=== PATIENT | female | born 1990 | race Hispanic/Latino ===

== ENCOUNTER 2017-08-03 15:34 | Emergency (ER) | payer MEDICAID ==
[2017-08-03 16:03] VITALS: BMI 25.8
[2017-08-03 16:08] VITALS: PULSE 82; RESP 16; TEMP 98.1; O2SAT 99
[2017-08-03] MEDS ORDERED: TDAP Vaccine 0.5 mL Syr IM ONE (16:30)
--- NOTE | 2017-08-03 16:36 | ED PDOC ---
Arrival/HPI - General Chief Complaint: Eye Problem Time Seen by Provider: 08/03/17 16:07 Historian: Patient - History of Present Illness Narrative History of Present Illness (Text): 08/03/17 16:31 27yr old female presents today with right eye irritation. pt states that she poked herself in the right eye with a straw last night. pt c/o burning sensation to right eye. c/o watery eyes. pt c/o photophobia. unsure of last tetanus shot. no fever/chills. no medications taken at home. no other complaints. Past Medical History - Provider Review Nursing Documentation Reviewed: Yes - Travel History Have you recently traveled outside [place] w/in the past 3 mons?: No - Infectious Disease Hx of Infectious Diseases: None - Tetanus Immunization Tetanus Immunization: Unknown - Cardiac Hx Cardiac Disorders: No - Pulmonary Hx Respiratory Disorders: No - Neurological Hx Neurological Disorder: No - HEENT Hx HEENT Disorder: No - Renal Hx Renal Disorder: No - Endocrine/Metabolic Hx Endocrine Disorders: No - Hematological/Oncological Hx Blood Disorders: No - Integumentary Hx Dermatological Disorder: No - Musculoskeletal/Rheumatological Hx Musculoskeletal Disorders: No - Gastrointestinal Hx Gastrointestinal Disorders: No - Genitourinary/Gynecological Hx Genitourinary Disorders: Yes Other/Comment: ovarian cysts - Psychiatric Hx Psychophysiologic Disorder: No Hx Substance Use: Yes (marijuana) - Anesthesia Hx Anesthesia: No - Suicidal Assessment Feels Threatened In Home Enviroment: No Family/Social History - Physician Review Nursing Documentation Reviewed: Yes Family/Social History: Unknown Family HX Smoking Status: Never Smoked Hx Alcohol Use: No Hx Substance Use: Yes (marijuana) Allergies/Home Meds Allergies/Adverse Reactions: Allergies cat dander Allergy (Mild, Verified 06/04/17 19:52) SWELLING Review of Systems - Review of Systems Constitutional: absent: Fatigue, Fevers Eyes: Photophobia, Eye Pain (right eye pain) ENT: absent: Sore Throat, Sinus Congestion Respiratory: absent: SOB, Cough Cardiovascular: absent: Chest Pain, Palpitations Gastrointestinal: absent: Abdominal Pain, Nausea, Vomiting Neurological: absent: Headache, Dizziness Physical Exam Vital Signs Reviewed: Yes Vital Signs Temp Pulse Resp BP Pulse Ox 08/03/17 16:03 98.1 F 82 16 132/88 99 Temperature: Afebrile Blood Pressure: Normal Pulse: Regular Respiratory Rate: Normal Appearance: Positive for: Well-Appearing, Non-Toxic, Comfortable Pain Distress: None Mental Status: Positive for: Alert and Oriented X 3 - Systems Exam Head: Present: Atraumatic Pupils: Present: PERRL Extroacular Muscles: Present: EOMI Conjunctiva: Present: Injected (right eye conjunctival injection; there is a 2mm by 1mm corneal abrasion with + dye uptake noted to the inferior aspect of right cornea; EOMI. ) Mouth: Present: Moist Mucous Membranes Neck: Present: Normal Range of Motion Respiratory/Chest: Present: Clear to Auscultation, Good Air Exchange. No: Respiratory Distress, Accessory Muscle Use Cardiovascular: Present: Regular Rate and Rhythm, Normal S1, S2. No: Murmurs Neurological: Present: GCS=15, Speech Normal Skin: Present: Warm, Dry, Normal Color Psychiatric: Present: Alert, Oriented x 3 Medical Decision Making ED Course and Treatment: 08/03/17 17:04 Patient is nontoxic well appearing in no distress Visual acuity right eye; 20/70 left; 20/40 both; 20/30 right eye; + inferior lateral Conjunctival injection noted, PERRLA, extraocular muscles intact tetanus updated. pt was advised to f/u with eye doctor within the next 2 days. pt was advised immediate return if symptoms worsen,persist or if new symptoms develop. Patient verbalizes understanding of discharge instructions and need for immediate followup. all aspects of this case were discussed the attending of record. Impression: Corneal abrasion Tobrex: 2 drops in the affected eye 4 times daily Followup with the eye doctor within the next 2 days Return immediately if symptoms worsen persist or if new symptoms develop; blurry vision, worsening eye pain, worsening redness or any other concerning symptoms develop. Follow up with the primary care physician within the next 2 days - Medication Orders Current Medication Orders: Discontinued Medications Tetanus/Reduced Diphtheria/Acell Pertussis (Boostrix Vaccine Inj) 0.5 ml IM .ONCE ONE Stop: 08/03/17 16:31 Last Admin: 08/03/17 16:43 Dose: 0.5 ml MAR Immunization Data Document 08/03/17 16:43 MS (Rec: 08/03/17 16:43 MS [id number]) Immunization Data Vaccine Information Sheet Given Yes Immunization Registry Document 08/03/17 16:43 MS (Rec: 08/03/17 16:43 MS [id number]) Immunization Registry Consent Date 04/29/17 Disposition/Present on Arrival - Present on Arrival Any Indicators Present on Arrival: No History of DVT/PE: No History of Uncontrolled Diabetes: No Urinary Catheter: No History of Decub. Ulcer: No History Surgical Site Infection Following: None - Disposition Have Diagnosis and Disposition been Completed?: Yes Diagnosis: Corneal abrasion Disposition: HOME/ ROUTINE Disposition Time: 17:10 Patient Plan: Discharge Patient Problems: Current Active Problems Problem Status Onset Corneal abrasion Acute Condition: GOOD Discharge Instructions (ExitCare): Corneal Abrasion Additional Instructions: Tobrex: 2 drops in the affected eye 4 times daily Followup with the eye doctor within the next 2 days Return immediately if symptoms worsen persist or if new symptoms develop; blurry vision, worsening eye pain, worsening redness or any other concerning symptoms develop. Follow up with the primary care physician within the next 2 days Prescriptions: Tobramycin 0.3% [Tobrex 0.3% Ophth Oint] 1 appl OD TID #1 tube Referrals: Frank Flood MD [Primary Care Provider] - Follow up with primary Dallas Reynoso [Staff Provider] - Follow up with primary Forms: [employer] (T[place]anian), WORK NOTE
[2017-08-03 20:27] VITALS: BP 110/72
== END 2017-08-03 18:20 | disposition home or self-care (01) ==
LOC: ED 15:34
DX: S05.01XA Injury of conjunctiva and corneal abrasion without foreign body, right eye, initial encounter (principal); X58.XXXA Exposure to other specified factors, initial encounter; Z23 Encounter for immunization

== ENCOUNTER 2017-09-12 10:49 | Emergency (ER) | payer MEDICAID ==
[2017-09-12 10:49] VITALS: BMI 24.5
[2017-09-12 10:58] VITALS: TEMP 98.3
[2017-09-12 11:22] VITALS: RESP 18; O2SAT 99
--- NOTE | 2017-09-12 11:51 | ED PDOC ---
Arrival/HPI - General Chief Complaint: Back Pain Time Seen by Provider: 09/12/17 11:00 Historian: Patient - History of Present Illness Narrative History of Present Illness (Text): 09/12/17 11:14 A 27 year old female, whose past medical history includes P: 0, presents to the emergency department complaining of back pain radiating to legs since yesterday. Patient reports having experienced similar symptom in the past. 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 Patient denies any trauma, fever, chills, urinary symptoms, anesthesia, or any other complaints. No PMD Past Medical History - Provider Review Nursing Documentation Reviewed: Yes - Infectious Disease Hx of Infectious Diseases: None - Tetanus Immunization Tetanus Immunization: Unknown - Cardiac Hx Cardiac Disorders: No - Pulmonary Hx Respiratory Disorders: No - Neurological Hx Neurological Disorder: No - HEENT Hx HEENT Disorder: No - Renal Hx Renal Disorder: No - Endocrine/Metabolic Hx Endocrine Disorders: No - Hematological/Oncological Hx Blood Disorders: No - Integumentary Hx Dermatological Disorder: No - Musculoskeletal/Rheumatological Hx Musculoskeletal Disorders: No - Gastrointestinal Hx Gastrointestinal Disorders: No - Genitourinary/Gynecological Hx Genitourinary Disorders: Yes Other/Comment: ovarian cysts - Psychiatric Hx Psychophysiologic Disorder: No Hx Substance Use: Yes (marijuana) - Anesthesia Hx Anesthesia: No - Suicidal Assessment Feels Threatened In Home Enviroment: No Family/Social History - Physician Review Nursing Documentation Reviewed: Yes Family/Social History: No Known Family HX Smoking Status: Former Smoker Hx Alcohol Use: No Hx Substance Use: Yes (marijuana) Allergies/Home Meds Allergies/Adverse Reactions: Allergies cat dander Allergy (Mild, Verified 09/12/17 10:51) SWELLING Review of Systems - Physician Review All systems were reviewed & negative as marked: Yes - Review of Systems Constitutional: absent: Fevers, Night Sweats Genitourinary Female: absent: Dysuria, Frequency, Hematuria, Urine Output Changes, Vaginal Bleeding, Vaginal Discharge Musculoskeletal: Back Pain (radiating to legs) Neurological: absent: Other (no anesthesia) Physical Exam Vital Signs Reviewed: Yes Vital Signs Temp Pulse Resp BP Pulse Ox 09/12/17 13:46 98.3 F 79 18 102/53 L 99 09/12/17 13:38 79 18 102/53 L 99 06/05/18 11:22 98.3 F 89 18 106/69 99 09/12/17 10:52 98.3 F 89 17 106/69 98 Temperature: Afebrile Blood Pressure: Normal Pulse: Regular Respiratory Rate: Normal Appearance: Positive for: Well-Appearing Pain Distress: None Mental Status: Positive for: Alert and Oriented X 3 - Systems Exam Head: Present: Atraumatic, Normocephalic Neck: Present: Normal Range of Motion Respiratory/Chest: Present: Clear to Auscultation, Good Air Exchange. No: Respiratory Distress, Accessory Muscle Use Cardiovascular: Present: Regular Rate and Rhythm, Normal S1, S2. No: Murmurs Abdomen: No: Tenderness, Distention, Peritoneal Signs Back: Present: Other (lumbar tenderness) Upper Extremity: Present: Normal Inspection. No: Cyanosis, Edema Lower Extremity: Present: Normal Inspection. No: Edema Neurological: Present: GCS=15, CN II-XII Intact, Speech Normal Skin: Present: Warm, Dry, Normal Color. No: Rashes Psychiatric: Present: Alert, Oriented x 3, Normal Insight, Normal Concentration Medical Decision Making ED Course and Treatment: 09/12/17 11:18 Impression: 27 year old female with back pain radiating to legs. Physical exam shows lumbar tenderness. Plan: -- Transvaginal Ultrasound -- Labs -- Urinalysis -- Tylenol -- Reassess and disposition Progress Notes: 09/12/2017 13:16 Transvaginal Ultrasound IMPRESSION: Single live intrauterine fetus with mean gestational age of 19 weeks and 4 days. The estimated date of delivery by ultrasound is 02/02/2018. Please note this is a limited OB ultrasound performed in the emergency room. Dedicated follow-up anatomic survery is recommended. Dictator: Cristina Méndez MD 09/15/17 23:11 suspect msk pain. s/p tylenol pain resolved. pt ambulatory steady gait. iup confirmed. pt asking for dc to attend sous chef appt. 09/15/17 23:12 no saddle anesthesia, no urinary complaints neuro intact. - Lab Interpretations Microbiology Results: Microbiology Results 09/12/17 21:32 Urine,Clean Catch Urine Culture - Final No Growth (<1,000 CFU/ML) Lab Results: 09/12/17 11:46 09/12/17 11:46 Lab Results 09/12/17 11:49: Urine Color Yellow, Urine Appearance Clear, Urine pH 6.0, Ur Specific [place] 1.025, Urine Protein Negative, Urine Glucose (UA) Negative, Urine Ketones Negative, Urine Blood Negative, Urine Nitrate Negative, Urine Bilirubin Negative, Urine Urobilinogen 0.2, Ur Leukocyte Esterase Trace H, Urine RBC 0 - 2, Urine WBC 5 - 10, Ur Epithelial Cells 6 - 8, Urine Bacteria Many, Urine Other Uyeast, Urine HCG, Qual Positive 09/12/17 11:46: Blood Type O NEGATIVE, Antibody Screen Negative, BBK History Checked No verified bt 09/12/17 11:46: Beta HCG, Quant 58882.00 H 09/12/17 11:46: Sodium 137, Potassium 3.8, Chloride 104, Carbon Dioxide 23, Anion Gap 14, BUN 6 L, Creatinine 0.6 L, Est GFR ( Amer) > 60, Est GFR ( Non-Af Amer) > 60, Random Glucose 87, Calcium 9.1, Total Bilirubin 0.1 L, AST 27 , ALT 41, Alkaline Phosphatase 78, Total Protein 6.7, Albumin 3.8, Globulin 2.9 , Albumin/Globulin Ratio 1.3 09/12/17 11:46: PT 11.4, INR 0.99, APTT 25.5 09/12/17 11:46: WBC 12.1 H D, RBC 4.08, Hgb 12.7, Hct 36.6, MCV 89.7, MCH 31.1, MCHC 34.7, RDW 13.4, Plt Count 234, MPV 9.2, Gran % 73.9 H, Lymph % (Auto) 17.8 L, [place] % (Auto) 5.4, Eos % (Auto) 2.7, Baso % (Auto) 0.2, Gran # 8.94 H, Lymph # (Auto) 2.2, [place] # (Auto) 0.7 H, Eos # (Auto) 0.3, Baso # (Auto) 0.03 I have reviewed the lab results: Yes - RAD Interpretation Radiology Orders: 09/12/17 11:17 AGE [US] Stat - Medication Orders Current Medication Orders: Discontinued Medications Acetaminophen (Tylenol 325mg Tab) 975 mg PO STAT STA Stop: 09/12/17 11:19 Last Admin: 09/12/17 11:39 Dose: 975 mg MAR Pain/Vitals Document 09/12/17 11:39 SF (Rec: 09/12/17 11:39 [place] [id number] Pain Reassessment Is This A Pain ReAssessment? Yes Sleep Is patient sleeping during reassessment? No Presence of Pain Presence of Pain Yes - Scribe Statement The provider has reviewed the documentation as recorded by the Meet Pierson Provider Scribe Attestation: All medical record entries made by the Scribe were at my direction and personally dictated by me. I have reviewed the chart and agree that the record accurately reflects my personal performance of the history, physical exam, medical decision making, and the department course for this patient. I have also personally directed, reviewed, and agree with the discharge instructions and disposition. Disposition/Present on Arrival - Present on Arrival Any Indicators Present on Arrival: No History of DVT/PE: No History of Uncontrolled Diabetes: No Urinary Catheter: No History of Decub. Ulcer: No History Surgical Site Infection Following: None - Disposition Have Diagnosis and Disposition been Completed?: Yes Diagnosis: Back pain Disposition: HOME/ ROUTINE Disposition Time: 01:00 Condition: STABLE Discharge Instructions (ExitCare): Urinary Tract Infections in Adults, Low Back Pain (DC), Asymptomatic Bacteriuria Additional Instructions: please follow up with your doctor/clinic. return to er with worsening symptoms or concerns. Prescriptions: Cefpodoxime [Vantin] 100 mg PO BID #14 tab Referrals: [facility] [Outside] - Follow up with primary [facility] [place] - [facility] - Follow up with primary Forms: [employer] (Micronesian)
[2017-09-12 12:00] LABS: BASO # 0.03 K/mm3 (0.0-2.0); BASO % 0.2 % (0.0-3.0); EOS # 0.3 (0.0-0.7); EOS % 2.7 % (1.5-5.0); GRAN # 8.94 (1.4-6.5); GRAN % 73.9 % (50.0-68.0); HEMOGLOBIN 12.7 g/dL (12.0-16.0); LYMPH # 2.2 (1.2-3.4); LYMPH % 17.8 % (22.0-35.0); MEAN CELL VOLUME 89.7 fl (80.0-105.0); MEAN CORPUSCULAR HEMOGLOBIN 31.1 pg (25.0-35.0); MEAN CORPUSCULAR HGB CONC 34.7 g/dl (31.0-37.0); MEAN PLATELET VOLUME 9.2 fl (7.0-11.0); MONO # 0.7 (0.1-0.6); MONO % 5.4 % (1.0-6.0); RBC 4.08 10^6/uL (3.5-6.1); RED CELL DISTRIBUTION WIDTH 13.4 % (11.5-14.5); WHITE BLOOD COUNT 12.1 10^3/ul (4.5-11.0)
[2017-09-12 12:00] LABS: HCG,QUALITATIVE URINE POSITIVE (NEGATIVE); URINE BILIRUBIN NEGATIVE (NEGATIVE); URINE BLOOD NEGATIVE (NEGATIVE); URINE GLUCOSE (UA) NEGATIVE (NEGATIVE); URINE LEUKOCYTE ESTERASE TRACE Leu/uL (NEGATIVE); URINE PROTEIN NEGATIVE mg/dL (<30 mg/dL); URINE UROBILINOGEN 0.2 E.U./dL (<1 E.U./dL)
[2017-09-12 12:02] LABS: URINE APPEARANCE CLEAR (CLEAR); URINE COLOR YELLOW (YELLOW)
[2017-09-12 12:02] LABS: ALB/GLOB RATIO 1.3 (1.1-1.8); ALBUMIN 3.8 g/dL (3.0-4.8); ALT/SGPT 41 U/L (7-56); AST/SGOT 27 U/L (14-36); BLOOD UREA NITROGEN 6 mg/dL (7-21); CALCIUM 9.1 mg/dL (8.4-10.5); GFR AFRICAN-AMERICAN > 60; GFR NON-AFRICAN AMERICAN > 60
[2017-09-12 12:09] LABS: URINE BACTERIA MANY (NEG); URINE RBC 0 - 2 /hpf (0-2)
[2017-09-12 12:20] LABS: INR 0.99 (0.93-1.08); PARTIAL THROMBOPLASTIN TIME 25.5 Seconds (25.1-36.5); PROTHROMBIN TIME 11.4 SECONDS (9.4-12.5)
--- NOTE | 2017-09-12 13:17 | US ---
PROCEDURE: OB Pelvic Ultrasound HISTORY: Back pain, LMP: 02/09/2018 COMPARISON: None available. FINDINGS: UTERUS: There is a single live intrauterine fetus in breech presentation. BPD: 46.1 mm corresponding to 20 weeks and 0 day of gestational age. HC: 175.7 mm corresponding to 20 weeks and 1 day of gestational age. AC: 139.3 mm corresponding to 19 weeks and 2 days of gestational age. FL: 29.2 mm corresponding to 19 weeks and 0 day of gestational age. Heart rate: 148 bpm. age (Ultrasound estimated): 19 weeks and 4 days Rajwinder-gestational hemorrhage: None. Date of delivery (Ultrasound estimated) : 02/02/2018 Placenta is fundal and anterior. CERVIX: Measures 3.8 cm. Long and closed. No cervical abnormality seen. RIGHT OVARY: Measures 4.3 x 2.3 x 4.0 cm. No mass lesion. Normal flow. LEFT OVARY: Measures 3.0 x 3.4 x 1.8 cm. No solid mass. Normal flow. FREE FLUID: None. OTHER FINDINGS: None. IMPRESSION: Single live intrauterine fetus with mean gestational age of 19 weeks and 4 days. The estimated date of delivery by ultrasound is 02/02/2018. Please note this is a limited OB ultrasound performed in the emergency room. Dedicated follow-up anatomic survey is recommended.
[2017-09-12 13:39] VITALS: BP 102/53; PULSE 79
== END 2017-09-12 13:46 | disposition home or self-care (01) ==
LOC: ED 10:49
DX: O26.92 Pregnancy related conditions, unspecified, second trimester (principal); M54.5 Low back pain; Z3A.19 19 weeks gestation of pregnancy